=== PATIENT | male | born 1940 | race African-American/Black ===

== ENCOUNTER 2022-01-24 16:02 | Inpatient (IN) ==
[2022-01-24 17:11] LABS: Basophils % 0.2 % (0.0-0.8); Eosinophils # 0.1 10*3/uL (0.0-0.87); Eosinophils % 1.9 % (0.00-10.9); Hematocrit 37.4 VOL% (42.0-52.0); Hemoglobin 11.9 GM/DL (14.0-18.0); Immature Granulocytes % 0.4 %; Immature Granulocytes Absolute 0.02 #; Lymphocytes % 38.2 % (21.2-54.2); Mean Corpuscular HGB Conc 31.8 GM/DL (32-36); Mean Corpuscular Volume 80.4 FL (87-102); Mean Platelet Volume 11.1 FL (9.6-12.0); Monocytes # 0.4 10*3/uL (0.11-0.8); Monocytes % 6.9 % (1.7-12.7); Neutrophils % 52.4 % (38.7-73.9); Platelet Count 199 T/CUMM (130-400); Red Blood Count 4.65 MC/CUMM (3.8-5.5); Red Cell Distribution Width 13.8 % (9.3-17.3); White Blood Count 5.2 T/CUMM (4-12)
[2022-01-24 17:32] LABS: Calcium 9.2 MG/DL (8.5-10.1); Osmolality,Calculated 288.5 MOS/KG (273-304); Potassium 4.4 MMOL/L (3.5-5.1)
[2022-01-24 17:37] LABS: INR 0.9; PT Patient Result 10.3 SECS (10.5-12.0); Partial Thromboplastin Time 27.7 SECS (23.7-32.9)
[2022-01-24] MEDS ORDERED: BISACODYL 5 MG TABLET PO PRN (18:11)
[2022-01-24] MEDS ORDERED: DEXTROSE 50% 25 GM/50 ML VIAL IV PRN (18:11)
[2022-01-24] MEDS ORDERED: NICOTINE 21 MG/24 HR PATCH TRANSDERM PRN (18:11)
[2022-01-24] MEDS ORDERED: ACETAMINOPHEN 325 MG TABLET PO PRN (18:11)
[2022-01-24] MEDS ORDERED: guaiFENesin/DM ER 600-30 MG TABLET PO PRN (18:11)
[2022-01-24] MEDS ORDERED: MORPHINE 2 MG/1 ML SYRINGE IV PRN (18:11)
[2022-01-24] MEDS ORDERED: diphenhydrAMINE CAP 25 MG CAPSULE PO PRN (18:11)
[2022-01-24] MEDS ORDERED: GLUCAGON 1 MG VIAL IM PRN ×2 (18:11)
[2022-01-24] MEDS ORDERED: ONDANSETRON 4 MG/2 ML VIAL IV PRN (18:11)
[2022-01-24] MEDS ORDERED: hydrALAZINE 20 MG/1 ML VIAL IV PRN (18:11)
[2022-01-24] MEDS ORDERED: traZODone 50 MG TABLET PO PRN (18:11)
[2022-01-24] MEDS ORDERED: DEXTROSE 10% 250 ML BAG IV PRN (18:20)
[2022-01-24] MEDS ORDERED: ATORVASTATIN 40 MG TABLET PO STA (18:24)
[2022-01-24] MEDS ORDERED: ASPIRIN EC 325 MG TABLET PO STA (18:24)
[2022-01-24] MEDS ORDERED: INSULIN GLARGINE 100 UNIT/ML SUBCUT SCH (21:00)
[2022-01-24] MEDS: INSULIN LISPRO 100 UNIT/ML SUBCUT SCH (21:40)
[2022-01-24] MEDS: HEPARIN 5,000 UNIT/1 ML VIAL SUBCUT SCH (21:40)
[2022-01-24] MEDS: SODIUM CHLORIDE 0.9% 1,000 ML IV SCH (21:40)
[2022-01-25 04:49] LABS: Basophils % 0.2 % (0.0-0.8); Eosinophils # 0.1 10*3/uL (0.0-0.87); Eosinophils % 2.5 % (0.00-10.9); Hematocrit 32.4 VOL% (42.0-52.0); Immature Granulocytes % 0.2 %; Immature Granulocytes Absolute 0.01 #; Lymphocytes # 2.2 10*3/uL (1.4-4.0); Lymphocytes % 46.8 % (21.2-54.2); Mean Corpuscular HGB Conc 30.9 GM/DL (32-36); Mean Corpuscular Volume 82.2 FL (87-102); Mean Platelet Volume 11.6 FL (9.6-12.0); Monocytes # 0.4 10*3/uL (0.11-0.8); Monocytes % 8.9 % (1.7-12.7); Neutrophils % 41.4 % (38.7-73.9); Platelet Count 170 T/CUMM (130-400); Red Blood Count 3.94 MC/CUMM (3.8-5.5); Red Cell Distribution Width 13.6 % (9.3-17.3); White Blood Count 4.7 T/CUMM (4-12)
[2022-01-25 05:10] LABS: Calcium 8.9 MG/DL (8.5-10.1); Osmolality,Calculated 285.1 MOS/KG (273-304); Potassium 4.1 MMOL/L (3.5-5.1)
[2022-01-25] MEDS: INSULIN LISPRO 100 UNIT/ML SUBCUT SCH ×3 (08:12→17:10)
[2022-01-25] MEDS ORDERED: LORazepam 2 MG/1 ML VIAL IV ONE (08:37)
[2022-01-25] MEDS ORDERED: LORazepam 1 MG TABLET PO ONE (09:00)
[2022-01-25] MEDS ORDERED: PANTOPRAZOLE 40 MG TABLET PO SCH (09:00)
[2022-01-25] MEDS ORDERED: ASPIRIN EC 325 MG TABLET PO SCH (09:00)
[2022-01-25] MEDS ORDERED: ENALAPRIL 20 MG TABLET PO SCH (09:00)
[2022-01-25] MEDS: HEPARIN 5,000 UNIT/1 ML VIAL SUBCUT SCH (09:09)
[2022-01-25] MEDS: SODIUM CHLORIDE 0.9% 1,000 ML IV SCH (15:41)
[2022-01-25 15:55] VITALS: BP 142/66
[2022-01-25] MEDS ORDERED: SIMVASTATIN 40 MG TABLET PO SCH (21:00)
[2022-01-26] MEDS ORDERED: CLOPIDOGREL 75 MG TABLET PO SCH (09:00)
[2022-01-26] MEDS ORDERED: ASPIRIN EC 81 MG TABLET PO SCH (09:00)
== END 2022-01-25 16:15 | disposition home or self-care (01) | DRG 123 ==
LOC: N.ED 16:02 → N.EDINP 18:12 → N.3E 19:31
PROVIDERS: ADMIT Internal Medicine; ATTEND Internal Medicine

== ENCOUNTER 2022-03-29 11:59 | Inpatient (IN) ==
[2022-03-29] MEDS ORDERED: PANTOPRAZOLE 40 MG VIAL IV STA (15:08)
[2022-03-29] MEDS ORDERED: SODIUM CHLORIDE 0.9% 1,000 ML IV STA (15:08)
[2022-03-29 15:18] LABS: Basophils % 0.2 % (0.0-0.8); Eosinophils # 0.1 10*3/uL (0.0-0.87); Eosinophils % 2.1 % (0.00-10.9); Hematocrit 31.2 VOL% (42.0-52.0); Hemoglobin 9.6 GM/DL (14.0-18.0); Immature Granulocytes % 0.3 %; Immature Granulocytes Absolute 0.02 #; Lymphocytes # 2.4 10*3/uL (1.4-4.0); Lymphocytes % 37.7 % (21.2-54.2); Mean Corpuscular HGB Conc 30.8 GM/DL (32-36); Mean Corpuscular Volume 79.8 FL (87-102); Mean Platelet Volume 11.2 FL (9.6-12.0); Monocytes # 0.5 10*3/uL (0.11-0.8); Monocytes % 7.7 % (1.7-12.7); Platelet Count 193 T/CUMM (130-400); Red Blood Count 3.91 MC/CUMM (3.8-5.5); Red Cell Distribution Width 14.4 % (9.3-17.3); White Blood Count 6.2 T/CUMM (4-12)
[2022-03-29 15:26] LABS: PT Patient Result 10.9 SECS (10.1-12.1); Partial Thromboplastin Time 31.2 SECS (23.7-32.9)
[2022-03-29 15:33] LABS: Alanine Aminotransferase 18 U/L (16-61); Albumin 3.5 G/DL (3.4-5.0); Alkaline Phosphatase 69 U/L (45-117); Aspartate Amino Transferase 10 U/L (0-37); Bilirubin,Total < 0.39 MG/DL (0.20-1.00); Blood Urea Nitrogen 26 MG/DL (7-18); Calcium 8.8 MG/DL (8.5-10.1); Carbon Dioxide 23 MMOL/L (21-32); Chloride 110 MMOL/L (98-107); Glucose 143 MG/DL (74-106); Osmolality,Calculated 279.8 MOS/KG (273-304); Potassium 4.5 MMOL/L (3.5-5.1); Sodium 137 MMOL/L (136-145); Total Protein 6.4 G/DL (6.4-8.2)
[2022-03-29] MEDS ORDERED: ACETAMINOPHEN 325 MG TABLET PO PRN (16:45)
[2022-03-29] MEDS ORDERED: ZALEPLON 5 MG CAPSULE PO PRN (16:45)
[2022-03-29] MEDS ORDERED: GLUCAGON 1 MG VIAL IM PRN (16:45)
[2022-03-29] MEDS ORDERED: hydrALAZINE 20 MG/1 ML VIAL IV PRN (16:45)
[2022-03-29] MEDS ORDERED: ONDANSETRON 4 MG/2 ML VIAL IV PRN (16:45)
[2022-03-29] MEDS ORDERED: DEXTROSE 10% 250 ML BAG IV PRN (16:54)
[2022-03-29] MEDS: SODIUM CHLORIDE 0.9% 1,000 ML IV SCH (17:36)
[2022-03-29] MEDS: PANTOPRAZOLE 40 MG VIAL IV SCH (22:20)
[2022-03-29] MEDS: SIMVASTATIN 40 MG TABLET PO SCH (22:20)
[2022-03-29] MEDS: INSULIN LISPRO 100 UNIT/ML SUBCUT SCH (22:21)
[2022-03-29 22:56] LABS: Hematocrit 29.4 VOL% (42.0-52.0)
[2022-03-30 05:24] LABS: Basophils % 0.2 % (0.0-0.8); Eosinophils # 0.1 10*3/uL (0.0-0.87); Eosinophils % 2.9 % (0.00-10.9); Hematocrit 24.5 VOL% (42.0-52.0); Hemoglobin 7.4 GM/DL (14.0-18.0); Immature Granulocytes % 0.2 %; Immature Granulocytes Absolute 0.01 #; Lymphocytes # 1.7 10*3/uL (1.4-4.0); Lymphocytes % 37.2 % (21.2-54.2); Mean Corpuscular HGB Conc 30.2 GM/DL (32-36); Mean Corpuscular Volume 81.4 FL (87-102); Monocytes # 0.4 10*3/uL (0.11-0.8); Monocytes % 9.3 % (1.7-12.7); Neutrophils % 50.2 % (38.7-73.9); Platelet Count 148 T/CUMM (130-400); Red Blood Count 3.01 MC/CUMM (3.8-5.5); Red Cell Distribution Width 14.3 % (9.3-17.3); White Blood Count 4.4 T/CUMM (4-12)
[2022-03-30 05:25] LABS: Basophils % 0.2 % (0.0-0.8); Eosinophils # 0.1 10*3/uL (0.0-0.87); Hematocrit 24.1 VOL% (42.0-52.0); Hemoglobin 7.5 GM/DL (14.0-18.0); Immature Granulocytes % 0.2 %; Immature Granulocytes Absolute 0.01 #; Lymphocytes # 1.7 10*3/uL (1.4-4.0); Lymphocytes % 38.7 % (21.2-54.2); Mean Corpuscular HGB Conc 31.1 GM/DL (32-36); Mean Corpuscular Volume 81.4 FL (87-102); Mean Platelet Volume 11.6 FL (9.6-12.0); Monocytes # 0.3 10*3/uL (0.11-0.8); Monocytes % 7.8 % (1.7-12.7); Neutrophils % 50.1 % (38.7-73.9); Platelet Count 149 T/CUMM (130-400); Red Blood Count 2.96 MC/CUMM (3.8-5.5); Red Cell Distribution Width 14.4 % (9.3-17.3); White Blood Count 4.3 T/CUMM (4-12)
[2022-03-30 05:37] LABS: Calcium 8.3 MG/DL (8.5-10.1); Osmolality,Calculated 286.1 MOS/KG (273-304)
[2022-03-30 05:43] LABS: % Iron Saturation 17.7 % (18-50); Ferritin 14.4 ng/mL (26-388)
[2022-03-30 05:45] LABS: Folate > 24.00 NG/ML (5.38-24.0); Vitamin B12 574 PG/ML (211-911)
[2022-03-30 05:55] LABS: Platelet Estimate Normal
[2022-03-30] MEDS: SODIUM CHLORIDE 0.9% 1,000 ML IV SCH ×2 (06:46→14:43)
[2022-03-30 07:03] LABS: Sedimentation Rate-Westergren 31 MM/HR (0-20)
[2022-03-30] MEDS: MULTIVITAMIN (BEROCCA) TABLET PO SCH (08:31)
[2022-03-30] MEDS: INSULIN LISPRO 100 UNIT/ML SUBCUT SCH ×4 (08:31→21:51)
[2022-03-30] MEDS: OMEGA 3 ACID ETHYL ESTERS 1 GM CAPSULE PO SCH (08:32)
[2022-03-30] MEDS: MAGNESIUM OXIDE 400 MG TABLET PO SCH (08:32)
[2022-03-30] MEDS: PANTOPRAZOLE 40 MG VIAL IV SCH ×2 (08:42→20:52)
[2022-03-30] MEDS: ENALAPRIL 20 MG TABLET PO SCH (08:43)
[2022-03-30 10:08] LABS: Hematocrit 22.7 VOL% (42.0-52.0)
[2022-03-30] MEDS ORDERED: SODIUM CHLORIDE 0.9% 1,000 ML IV PRN (11:25)
[2022-03-30] MEDS ORDERED: DOCUSATE SODIUM 100 MG CAPSULE PO PRN (14:59)
[2022-03-30] MEDS: FERROUS SULFATE 325 MG TABLET PO SCH (20:52)
[2022-03-30] MEDS: SIMVASTATIN 40 MG TABLET PO SCH (20:52)
[2022-03-30 22:15] LABS: Hemoglobin 5.5 GM/DL (14.0-18.0)
[2022-03-31] MEDS: SODIUM CHLORIDE 0.9% 1,000 ML IV SCH ×3 (00:30→23:00)
[2022-03-31 05:52] LABS: Basophils % 0.2 % (0.0-0.8); Eosinophils # 0.2 10*3/uL (0.0-0.87); Eosinophils % 2.8 % (0.00-10.9); Hematocrit 18.8 VOL% (42.0-52.0); Immature Granulocytes % 0.5 %; Immature Granulocytes Absolute 0.03 #; Lymphocytes # 2.3 10*3/uL (1.4-4.0); Lymphocytes % 36.1 % (21.2-54.2); Mean Corpuscular HGB Conc 29.8 GM/DL (32-36); Mean Corpuscular Volume 82.8 FL (87-102); Mean Platelet Volume 11.5 FL (9.6-12.0); Monocytes # 0.4 10*3/uL (0.11-0.8); Monocytes % 6.1 % (1.7-12.7); Neutrophils % 54.3 % (38.7-73.9); Platelet Count 148 T/CUMM (130-400); Red Blood Count 2.27 MC/CUMM (3.8-5.5); Red Cell Distribution Width 14.6 % (9.3-17.3); White Blood Count 6.4 T/CUMM (4-12)
[2022-03-31 05:55] LABS: Hemoglobin 5.6 GM/DL (14.0-18.0)
[2022-03-31 06:30] LABS: Calcium 8.2 MG/DL (8.5-10.1); Osmolality,Calculated 287.1 MOS/KG (273-304); Potassium 4.1 MMOL/L (3.5-5.1)
[2022-03-31] MEDS ORDERED: SODIUM CHLORIDE 0.9% 1,000 ML IV PRN (08:18)
[2022-03-31] MEDS: INSULIN LISPRO 100 UNIT/ML SUBCUT SCH ×4 (08:35→21:34)
[2022-03-31] MEDS: FERROUS SULFATE 325 MG TABLET PO SCH ×2 (10:20→21:34)
[2022-03-31] MEDS: MULTIVITAMIN (BEROCCA) TABLET PO SCH (10:20)
[2022-03-31] MEDS: OMEGA 3 ACID ETHYL ESTERS 1 GM CAPSULE PO SCH (10:20)
[2022-03-31] MEDS: MAGNESIUM OXIDE 400 MG TABLET PO SCH (10:20)
[2022-03-31] MEDS: PANTOPRAZOLE 40 MG VIAL IV SCH ×2 (10:20→21:34)
[2022-03-31] MEDS: ENALAPRIL 20 MG TABLET PO SCH (10:21)
[2022-03-31 11:52] LABS: Soluble Transf Receptor (sTfR) 2.7 mg/L (1.8 - 4.6)
[2022-03-31 18:36] LABS: Hematocrit 21.1 VOL% (42.0-52.0); Hemoglobin 6.7 GM/DL (14.0-18.0)
[2022-03-31] MEDS: SIMVASTATIN 40 MG TABLET PO SCH (21:34)
[2022-03-31 22:23] LABS: Hematocrit 23.2 VOL% (42.0-52.0); Hemoglobin 7.6 GM/DL (14.0-18.0)
[2022-04-01 05:30] LABS: Basophils % 0.2 % (0.0-0.8); Eosinophils # 0.2 10*3/uL (0.0-0.87); Eosinophils % 2.5 % (0.00-10.9); Hematocrit 21.6 VOL% (42.0-52.0); Hemoglobin 6.8 GM/DL (14.0-18.0); Immature Granulocytes Absolute 0.06 #; Lymphocytes # 1.8 10*3/uL (1.4-4.0); Lymphocytes % 29.4 % (21.2-54.2); Mean Corpuscular HGB Conc 31.5 GM/DL (32-36); Mean Corpuscular Volume 83.7 FL (87-102); Mean Platelet Volume 11.1 FL (9.6-12.0); Monocytes # 0.5 10*3/uL (0.11-0.8); Monocytes % 7.4 % (1.7-12.7); Neutrophils % 59.5 % (38.7-73.9); Platelet Count 128 T/CUMM (130-400); Red Blood Count 2.58 MC/CUMM (3.8-5.5); Red Cell Distribution Width 15.4 % (9.3-17.3); White Blood Count 6.1 T/CUMM (4-12)
[2022-04-01 05:38] LABS: Calcium 8.3 MG/DL (8.5-10.1); Potassium 3.8 MMOL/L (3.5-5.1)
[2022-04-01] MEDS ORDERED: SODIUM CHLORIDE 0.9% 1,000 ML IV PRN (07:50)
[2022-04-01] MEDS: ENALAPRIL 20 MG TABLET PO SCH (09:59)
[2022-04-01] MEDS: FERROUS SULFATE 325 MG TABLET PO SCH ×2 (10:00→21:15)
[2022-04-01] MEDS: OMEGA 3 ACID ETHYL ESTERS 1 GM CAPSULE PO SCH (10:00)
[2022-04-01] MEDS: MULTIVITAMIN (BEROCCA) TABLET PO SCH (10:00)
[2022-04-01] MEDS: INSULIN LISPRO 100 UNIT/ML SUBCUT SCH ×4 (10:01→21:53)
[2022-04-01] MEDS: MAGNESIUM OXIDE 400 MG TABLET PO SCH (10:01)
[2022-04-01] MEDS: PANTOPRAZOLE 40 MG VIAL IV SCH ×2 (10:02→21:17)
[2022-04-01] MEDS: SODIUM CHLORIDE 0.9% 1,000 ML IV SCH ×2 (10:03→22:41)
[2022-04-01 10:54] LABS: Hematocrit 21.3 VOL% (42.0-52.0); Hemoglobin 6.6 GM/DL (14.0-18.0)
[2022-04-01] MEDS ORDERED: BISACODYL 5 MG TABLET PO ONE (15:00)
[2022-04-01] MEDS ORDERED: POLYETHYLENE GLYCOL POWDER 255 GM BOTTLE PO ONE (18:00)
[2022-04-01] MEDS: SIMVASTATIN 40 MG TABLET PO SCH (21:15)
[2022-04-02] MEDS ORDERED: POLYETHYLENE GLYCOL POWDER 255 GM BOTTLE PO ONE ×2 (05:00)
[2022-04-02 05:55] LABS: Basophils % 0.4 % (0.0-0.8); Eosinophils # 0.1 10*3/uL (0.0-0.87); Eosinophils % 2.6 % (0.00-10.9); Hemoglobin 7.7 GM/DL (14.0-18.0); Immature Granulocytes % 0.4 %; Immature Granulocytes Absolute 0.02 #; Lymphocytes # 1.5 10*3/uL (1.4-4.0); Lymphocytes % 28.1 % (21.2-54.2); Mean Corpuscular HGB Conc 32.1 GM/DL (32-36); Mean Corpuscular Volume 84.5 FL (87-102); Mean Platelet Volume 11.4 FL (9.6-12.0); Monocytes # 0.4 10*3/uL (0.11-0.8); Monocytes % 7.5 % (1.7-12.7); Platelet Count 136 T/CUMM (130-400); Red Blood Count 2.84 MC/CUMM (3.8-5.5); Red Cell Distribution Width 15.8 % (9.3-17.3); White Blood Count 5.5 T/CUMM (4-12)
[2022-04-02 06:13] LABS: Calcium 8.4 MG/DL (8.5-10.1); Potassium 3.5 MMOL/L (3.5-5.1)
[2022-04-02] MEDS: SODIUM CHLORIDE 0.9% 1,000 ML IV SCH ×3 (09:30→23:56)
[2022-04-02] MEDS: ENALAPRIL 20 MG TABLET PO SCH (09:33)
[2022-04-02] MEDS: INSULIN LISPRO 100 UNIT/ML SUBCUT SCH ×4 (09:33→22:22)
[2022-04-02] MEDS: OMEGA 3 ACID ETHYL ESTERS 1 GM CAPSULE PO SCH (09:33)
[2022-04-02] MEDS: MAGNESIUM OXIDE 400 MG TABLET PO SCH (09:33)
[2022-04-02] MEDS: FERROUS SULFATE 325 MG TABLET PO SCH ×2 (09:33→22:25)
[2022-04-02] MEDS: MULTIVITAMIN (BEROCCA) TABLET PO SCH (09:33)
[2022-04-02] MEDS: PANTOPRAZOLE 40 MG VIAL IV SCH ×2 (09:37→22:28)
[2022-04-02 10:31] LABS: Hemoglobin A1 (Alkaline) 98.1 % (96.5-98.5); Hemoglobin A2 (Alkaline) 1.9 % (1.5-3.5)
[2022-04-02] MEDS: LACTATED RINGERS 1,000 ML IV SCH (13:22)
[2022-04-02] MEDS ORDERED: propofoL 200 MG/20 ML VIAL IV ONE (14:26)
[2022-04-02] MEDS ORDERED: LIDOCAINE 2% 5 ML VIAL ONE (14:26)
[2022-04-02] MEDS: SIMVASTATIN 40 MG TABLET PO SCH (22:25)
[2022-04-03 06:15] LABS: Basophils % 0.2 % (0.0-0.8); Eosinophils # 0.2 10*3/uL (0.0-0.87); Eosinophils % 2.5 % (0.00-10.9); Hematocrit 23.8 VOL% (42.0-52.0); Hemoglobin 7.5 GM/DL (14.0-18.0); Immature Granulocytes % 0.7 %; Immature Granulocytes Absolute 0.04 #; Lymphocytes # 1.7 10*3/uL (1.4-4.0); Lymphocytes % 27.8 % (21.2-54.2); Mean Corpuscular HGB Conc 31.5 GM/DL (32-36); Mean Corpuscular Volume 85.3 FL (87-102); Monocytes # 0.4 10*3/uL (0.11-0.8); Neutrophils % 61.8 % (38.7-73.9); Platelet Count 144 T/CUMM (130-400); Red Blood Count 2.79 MC/CUMM (3.8-5.5)
[2022-04-03 06:32] LABS: Osmolality,Calculated 283.8 MOS/KG (273-304); Potassium 3.6 MMOL/L (3.5-5.1)
[2022-04-03] MEDS: INSULIN LISPRO 100 UNIT/ML SUBCUT SCH ×3 (07:55→16:55)
[2022-04-03] MEDS: MULTIVITAMIN (BEROCCA) TABLET PO SCH (09:00)
[2022-04-03] MEDS: OMEGA 3 ACID ETHYL ESTERS 1 GM CAPSULE PO SCH (09:01)
[2022-04-03] MEDS: MAGNESIUM OXIDE 400 MG TABLET PO SCH (09:01)
[2022-04-03] MEDS: FERROUS SULFATE 325 MG TABLET PO SCH (09:01)
[2022-04-03] MEDS: ENALAPRIL 20 MG TABLET PO SCH (09:02)
[2022-04-03] MEDS: PANTOPRAZOLE 40 MG VIAL IV SCH (09:17)
[2022-04-03] MEDS ORDERED: IRON SUCROSE 200 MG in SODIUM CHLORIDE 0.9% 100 ML IV ONE (10:50)
[2022-04-03] MEDS ORDERED: FERRIC GLUCONATE COMPLEX 125 MG in SODIUM CHLORIDE 0.9% 100 ML IV ONE (11:30)
[2022-04-03] MEDS ORDERED: propofoL 200 MG/20 ML VIAL IV ONE (13:09)
[2022-04-03] MEDS ORDERED: LIDOCAINE 2% 5 ML VIAL ONE (13:09)
[2022-04-03] MEDS: LACTATED RINGERS 1,000 ML IV SCH (13:38)
[2022-04-03 16:33] VITALS: BP 144/64
== END 2022-04-03 17:15 | disposition home or self-care (01) | DRG 813 ==
LOC: N.ED 11:59 → SUATTDRO 16:45 → N.EDINP 16:45 → N.5E 17:58
PROVIDERS: ADMIT Emergency Medicine; ATTEND Internal Medicine